=== PATIENT | male | born 1970 | race Caucasian/White ===

== ENCOUNTER 2016-05-17 07:19 | Emergency (ER) | payer BC ==
[2016-05-17] MEDS ORDERED: NS 2,000 ML IV ONE (07:34)
--- NOTE | 2016-05-17 07:35 | EDPRACDOC ---
- General Information Home Medications: Home Medications Liraglutide [Victoza 2-Rock] 0.6 mg SQ DAILY 07/04/14 Metformin HCl [Glucophage] 1,000 mg PO BID 07/04/14 Ramipril [Altace] 10 mg PO DAILY 07/04/14 MetFORMIN (Immediate Release) [GLUCOPHAGE Immed Release] 1,000 mg PO 0700,1700 # 20 tab 05/17/16 Allergies/Adverse Reactions: Allergies Allergy/AdvReac Type Severity Reaction Status Date / Time No Known Allergies Allergy Verified 05/17/16 07:41 - History of Present Illness Complains Of: Reports: High Blood Sugar Relevant History: Reports: IDDM Medication Use: Reports: Stopped Vomiting - TNTC: No Associated Signs and Symptoms: Reports: None Abdominal Pain Location: Reports: None Abdominal Pain Quality: Reports: None ED Past Medical History - History Reviewed Yes Nurses notes reviewed and agree except as marked - Patient Medical History Cardiac History: Reports: Hypertension, Hypercholesterolemia Systemic History: Reports: Diabetes - Social Medical History Smoking Status: Never smoker EDM Review of Systems - Review of Systems ROS Negative Except as Marked: Yes All systems reviewed and were negative except as marked - Physical Exam Constitutional: Alert (Awake), No apparent distress Oriented to: Time, Person, Place Last recorded Vital Signs: Oxygen Pulse Oxygen Saturation O2 Device Oxygen Flow Rate Fraction of Inspired Oxygen ( FIO2) - HEENT Head: Normal ( normocephalic) Eye Exam: Normal (PERRL, EOMI, Sclera white) Oropharynx: Normal (Pharynx:Moist without exudate,Gums-no swelling) ENT EAC: Normal TMJ: Normal Nose: No Symptoms Reported (septum midline) Neck: Normal (FROM, trachea at midline) - Respiratory/Cardiovascular Respiratory: Normal - CTA (BBS clear to auscultation without adventitious sounds ) Cardiovascular: Normal (RRR without murmur, gallop or rub) - GI Auscultation: Normal (NABS) Palpation: Normal (Soft,No rebound or guarding, non distended) Tenderness: Non tender Sal's Sign: Negative - Musculoskeletal Back: Normal (Non-Tender) Extremities: Normal (Normal tone, Pulses 2+ No cyanosis or edema, FROM) - Integumentary Skin: Normal, Warm, Dry Lymphatics: Normal (no adenopathy) - Neurologic Memory Impaired: Normal Motor Function: Normal (Normal tone, Pulses 2+ No cyanosis or edema, FROM) Cranial Nerve: Normal (CN II-X11 intact sensation, strength 5/5) Cerebellar: Normal Mood Description: Normal Perception: Normal - Results 05/17/16 07:55 05/17/16 08:29 Decision Time to Discharge: 09:02 - Departure Yes I personally saw and evaluated the patient. Disposition: Home Condition: Good Final Diagnosis: HYPERGLYCEMIA Instructions: Diabetic Hyperglycemia (ED) Education/Counseling Given To: Patient Education/Counseling Given Regarding: Diagnosis, Treatment, Prognosis Referrals: None,No Provider [Primary Care Provider] - One Week Darian Kessler MD [Staff Physician] - One Week Prescriptions: New MetFORMIN (Immediate Release) [GLUCOPHAGE Immed Release] 1,000 mg PO 0700, 1700 #20 tab No Action Ramipril [Altace] 10 mg PO DAILY Liraglutide [Victoza 2-Rock] 0.6 mg SQ DAILY Metformin HCl [Glucophage] 1,000 mg PO BID
[2016-05-17 07:41] VITALS: TEMP 98; BMI 28.9
--- NOTE | 2016-05-17 07:49 | DIRPT ---
CLINICAL DATA: Shortness of breath and cough EXAM: CHEST 2 VIEW COMPARISON: 07/05/2014 FINDINGS: The heart size and mediastinal contours are within normal limits. Both lungs are clear. The visualized skeletal structures are unremarkable. IMPRESSION: No active cardiopulmonary disease. Electronically Signed By: Junaid Kumar M.D. On: 05/17/2016 07:46
[2016-05-17 08:09] LABS: AUTOMATED BASOPHIL 0.6 % (0-2); AUTOMATED EOSINOPHIL 3.3 % (0-5); AUTOMATED LYMPH 25.5 % (17-44); AUTOMATED MONOCYTE 7.3 % (3-10); AUTOMATED NEUTROPHIL 63.3 % (45-76)
[2016-05-17 08:11] LABS: LEUKOCYTES/URINE NEG (NEGATIVE); NITRITE/URINE NEG (NEGATIVE); RBC/URINE 0-2 (0-2); URINE OCCULT BLOOD NEG (NEG/TRACE)
[2016-05-17 08:16] LABS: ABG Draw Site Right Radial; ALLEN'S TEST PASS; BEb 0.5 (+/- 2); TCO2 26.7 MMOL/L (23-27)
[2016-05-17] MEDS ORDERED: REGULAR INSULIN 100 UNITS/ML - 3 ML VIAL IV ONE (08:46)
[2016-05-17 08:48] LABS: BLOOD UREA NITROGEN 13 MG/DL (9-20); CALCIUM 8.4 MG/DL (8.4-10.2); CALCULATED OSMOLALITY 276 MOs/Kg (270-290); CHLORIDE 101 mEq/L (98-107); SODIUM LEVEL 134 mEq/L (137-146); TOTAL PROTEIN 5.9 G/DL (6.3-8.2)
[2016-05-17 08:58] LABS: GLUCOSE 423 MG/DL (70-99)
[2016-05-17 09:38] VITALS: BP 129/71; PULSE 71
== END 2016-05-17 09:38 | disposition home or self-care (01) ==
LOC: ED 07:19
DX: E11.65 Type 2 diabetes mellitus with hyperglycemia (principal)
CPT/HCPCS: 36415; 36600; 71020; 80053; 81001; 82803; 82962; 84484; 85025; 93005; 96361; 96374; 99283; J3490